=== PATIENT | male | born 1955 | race Two or more races ===

== ENCOUNTER 2023-12-18 22:11 | Inpatient (IN) | payer OTHER ==
[~2023-12-18] VITALS: Ht 170.2 cm; Wt 199.6 kg
[2023-12-18] MEDS ORDERED: VASOTEC2.5 MG PO (22:18)
[2023-12-18] MEDS ORDERED: METFORMIN HCL500 M3 PO (22:19)
[2023-12-18] MEDS ORDERED: 0.9 % SODIUM CHLORIDE 1,000 ML IV SCH ×2 (22:30)
[2023-12-18] MEDS ORDERED: MORPHINE SULFATE 4 MG/ML CARTRIDGE IV PRN (22:30)
[2023-12-18] MEDS ORDERED: DEXTROSE 50 % IN WATER 0.5 G/ML DISP.SYRIN IV PRN (22:45)
[2023-12-18] MEDS ORDERED: INSULIN LISPRO 1,000 UNIT/10 ML UNITS SUBCUTANEO PRN (22:45)
[2023-12-18 22:55] LABS: URINE APPEARANCE Clear; URINE BILIRRUBIN Negative (NEGATIVE); URINE BLOOD Negative; URINE COLOR Yellow; URINE GLUCOSE Negative (NEGATIVE); URINE KETONE Negative (NEGATIVE); URINE LEUKOCYTE Negative; URINE NITRATE Negative; URINE PROTEIN Negative (NEGATIVE); URINE UROBILINOGEN 0.2 E.U./dl
[2023-12-18 22:58] LABS: URINE BACTERIA 6.2 uL (0.0-1933); URINE RBC 2.1 uL (0.0-20.8)
[2023-12-18 23:11] LABS: URINE EPITHELIAL CELLS 1.2 uL (0.0-38.8); URINE WBC 1.6 uL (0.0-23.2)
[2023-12-18 23:51] LABS: HEMOGLOBIN 13.2 g/dL (13-16.00); MEAN CELL VOLUME 89.4 fL (80.0-100.00); MEAN CORPUSCULAR HEMOGLOBIN 30.2 pg (27.00-32.0); MEAN CORPUSCULAR HGB CONC 33.8 g/dl (32.0-36.0); PLATELET COUNT 261 K/uL (150-450); RED BLOOD COUNT 4.37 M/uL (4.00-6.00); RED CELL DISTRIBUTION WIDTH 13.5 % (11.5-14.5)
[2023-12-19] MEDS ORDERED: PIPERACILLIN/TAZOBACTAM SODIUM 3.375 GM in 0.9 % SODIUM CHLORIDE 100 ML IV SCH
[2023-12-19 00:22] LABS: ALBUMIN 3.8 gm/dL (3.4-5.0); BILIRUBIN TOTAL 0.84 mg/dL (0.3-1.2); CALCIUM 9.2 mg/dL (8.5-10.1); CREATININE SERUM 1.23 mg/dL (0.70-1.30); GFR 58.52; GLOBULINA 4.2 G/DL (2.4-3.5); POTASSIUM 4.05 mEq/L (3.5-5.1)
[2023-12-19 00:30] LABS: INR 1.09; PARTIAL THROMBOPLASTIN TIME 25.3 SECONDS (22.0-34.0); PROTHROMBIN TIME 11.4 SECONDS (9.0-11.5)
[2023-12-19] MEDS ORDERED: ONDANSETRON HCL 2 MG/ML VIAL IV PRN (07:45)
[2023-12-19] MEDS ORDERED: MORPHINE SULFATE 4 MG/ML VIAL IV PRN (07:45)
[2023-12-19] MEDS ORDERED: RINGERS SOLUTION,LACTATED 1,000 ML IV SCH (07:45)
[2023-12-19] MEDS ORDERED: FAMOTIDINE/PF 20 MG/2 ML VIAL IV SCH (09:00)
[2023-12-19 10:34] LABS: INR 1.03; PARTIAL THROMBOPLASTIN TIME 23.8 SECONDS (22.0-34.0)
[2023-12-19 10:52] LABS: PROTHROMBIN TIME 10.8 SECONDS (9.0-11.5)
[2023-12-19 11:19] LABS: ALBUMIN 4.3 gm/dL (3.4-5.0); CALCIUM 9.6 mg/dL (8.5-10.1); CREATININE SERUM 1.43 mg/dL (0.70-1.30); GFR 49.18; MAGNESIUM 1.9 mg/dL (1.8-2.4); PHOSPHOROUS 3.9 mg/dL (2.5-4.9); POTASSIUM 4.1 mEq/L (3.5-5.1)
[2023-12-19] MEDS ORDERED: OxyCODONE HCL 5 MG TABLET (ROXICODONE) PO PRN (12:00)
[2023-12-19] MEDS ORDERED: DIBUCAINE 30 GM TUBE RECTAL ONE (12:45)
[2023-12-19] MEDS ORDERED: BUPIVACAINE HCL 30 ML VIAL IJ ONE (12:45)
[2023-12-19] MEDS ORDERED: METRONIDAZOLE/SODIUM CHLORIDE 500 MG/100 ML PIGGYBACK IV SCH (12:45)
[2023-12-19] MEDS ORDERED: CEFTRIAXONE SODIUM 2,000 MG VIAL IV SCH (12:45)
[2023-12-19] MEDS ORDERED: POVIDONE-IODINE 118 ML BOTT TOP ONE (12:45)
[2023-12-19] MEDS ORDERED: HEMOSTATIC MATRIX 1 KIT KIT TOP ONE (12:45)
[2023-12-19] MEDS ORDERED: LIDOCAINE HCL 1%/EPINEPHRINE 20ML VIAL IJ ONE (12:45)
[2023-12-19] MEDS ORDERED: CEFTRIAXONE SODIUM 2,000 MG in 0.9 % SODIUM CHLORIDE 50 ML IV ONE (13:15)
[2023-12-19] MEDS ORDERED: METRONIDAZOLE/SODIUM CHLORIDE 200 ML IV ONE (13:15)
[2023-12-19] MEDS ORDERED: DIBUCAINE 30 GM TUBE RECTAL SCH (17:00)
[2023-12-19] MEDS ORDERED: POLYETHYLENE GLYCOL 3350 17 GM BLIST.PACK PO SCH (17:00)
[2023-12-19] MEDS ORDERED: TAMSULOSIN HCL 0.4 MG CAP PO SCH (17:00)
[2023-12-20 08:33] LABS: HEMATOCRIT 34.3 % (39.0-48.0); HEMOGLOBIN 11.8 g/dL (13-16.00); MEAN CELL VOLUME 88.9 fL (80.0-100.00); MEAN CORPUSCULAR HEMOGLOBIN 30.5 pg (27.00-32.0); MEAN CORPUSCULAR HGB CONC 34.3 g/dl (32.0-36.0); PLATELET COUNT 237 K/uL (150-450); RED BLOOD COUNT 3.86 M/uL (4.00-6.00); RED CELL DISTRIBUTION WIDTH 13.5 % (11.5-14.5)
[2023-12-20 09:03] LABS: ALBUMIN 3.6 gm/dL (3.4-5.0); CREATININE SERUM 1.22 mg/dL (0.70-1.30); GFR 59.07; MAGNESIUM 1.8 mg/dL (1.8-2.4); PHOSPHOROUS 3.3 mg/dL (2.5-4.9); POTASSIUM 4.09 mEq/L (3.5-5.1)
[2023-12-20] MEDS ORDERED: OXYC1TAB9 PO (14:55)
== END 2023-12-20 18:49 | disposition home or self-care (01) | DRG 349 ==
LOC: ER 22:11 → SURH 12-19 08:07 → O/R 12-19 08:07 → SEC-K 12-19 08:07 → O/R 12-19 09:31 → SURH 12-19 14:29
PROVIDERS: General Practice; ADMIT Surgery; ATTEND Surgery
PROC: 06LY7CC Occlusion of Hemorrhoidal Plexus with Extraluminal Device, Via Natural or Artificial Opening (ICD-10-PCS; 2023-12-19)
PROC: 0DBQ8ZZ Excision of Anus, Via Natural or Artificial Opening Endoscopic (ICD-10-PCS; 2023-12-19)
PROC: 3E0T3BZ Introduction of Anesthetic Agent into Peripheral Nerves and Plexi, Percutaneous Approach (ICD-10-PCS; 2023-12-19)
PROC: 06BY0ZC Excision of Hemorrhoidal Plexus, Open Approach (ICD-10-PCS; principal; 2023-12-19 11:30)
DX: K64.5 Perianal venous thrombosis (principal); K64.3 Fourth degree hemorrhoids; K64.8 Other hemorrhoids; K64.4 Residual hemorrhoidal skin tags; Z20.822 Contact with and (suspected) exposure to COVID-19